=== PATIENT | male | born 1960 | race Two or more races ===

== ENCOUNTER 2024-09-22 13:17 | Emergency (ER) | payer OTHER ==
[~2024-09-22] VITALS: Ht 170.2 cm; Wt 81.6 kg
[2024-09-22] MEDS ORDERED: ORPHENADRINE CITRATE 30 MG/ML AMPUL IM ONE (14:00)
[2024-09-22] MEDS ORDERED: DEXAMETHASONE SODIUM PHOSPHATE 4 MG/ML VIAL IM STA (17:52)
[2024-09-22] MEDS ORDERED: ZYRTEC10 MG PO (17:55)
[2024-09-22] MEDS ORDERED: MEDROLPACK PO (17:55)
[2024-09-22] MEDS ORDERED: PEPCID AC20 MG PO (17:55)
== END 2024-09-22 17:54 | disposition home or self-care (01) ==
LOC: ER 13:17
DX: G89.11 Acute pain due to trauma (principal); M25.562 Pain in left knee; M17.12 Unilateral primary osteoarthritis, left knee; R05.9 Cough, unspecified; Z88.6 Allergy status to analgesic agent